=== PATIENT | female | born 1970 | race Caucasian/White ===

== ENCOUNTER 2016-11-16 07:55 | Emergency (ER) | payer MEDICAID ==
[~2016-11-16] VITALS: Ht 175.3 cm; Wt 105.0 kg
[2016-11-16 07:59] VITALS: BP 113/69
[2016-11-16] MEDS ORDERED: METF500T4 PO (08:39)
[2016-11-16] MEDS ORDERED: INSU100V8 SQ (08:39)
== END 2016-11-16 08:51 | disposition home or self-care (01) ==
LOC: ED 08:45
DX: Z76.0 Encounter for issue of repeat prescription (principal); E10.9 Type 1 diabetes mellitus without complications
CPT/HCPCS: 99283

== ENCOUNTER 2017-05-03 10:53 | Inpatient (IN) | payer MEDICAID, OTHER ==
[~2017-05-03] VITALS: Ht 175.3 cm; Wt 98.4 kg
[~2017-05-03 10:53] MED LIST: INSU100V8 SQ; METF500T4 PO
[2017-05-03] MEDS ORDERED: ONDANSETRON 2MG/ML, 2ML IVPush ONE (15:30)
[2017-05-03] MEDS ORDERED: ONDANSETRON ODT 4 MG ONE (15:33)
[2017-05-03 15:43] LABS: BASOPHILS # (AUTO) 0.04 x10^3/uL (0-0.1); BASOPHILS % (AUTO) 1 % (0-1); EOSINOPHILS # (AUTO) 0.17 x10^3/uL (0-0.4); EOSINOPHILS % (AUTO) 2 % (1-7); LYMPHOCYTES # (AUTO) 1.45 x10^3/uL (1-3.4); LYMPHOCYTES % (AUTO) 21 % (22-44); MD NO; MEAN CORPUSCULAR HEMOGLOBIN 31.5 pg (27.0-34.8); MEAN CORPUSCULAR HGB CONC 33.3 g/dL (32.4-35.8); MEAN CORPUSCULAR VOLUME 94.3 fL (80-100); MEAN PLATELET VOLUME 8.9 fL (7.4-10.4); MONOCYTES # (AUTO) 0.41 x10^3/uL (0.2-0.8); MONOCYTES % (AUTO) 6 % (2-9); NEUTROPHILS # (AUTO) 4.81 x10^3/uL (1.8-6.8); NEUTROPHILS % (AUTO) 70 % (42-75); PLATELET COUNT 313 x10^3/uL (130-400); RED BLOOD COUNT 5.23 x10^6/uL (3.82-5.3); RED CELL DISTRIBUTION WIDTH 13.5 % (9.6-15.2)
[2017-05-03 15:44] LABS: RAPID INFLUENZA A Negative (Negative); RAPID INFLUENZA B Negative (Negative)
[2017-05-03 15:53] LABS: ALBUMIN 3.8 g/dL (3.4-5.0); ANION GAP 10 mmol/L (5-15); CALCIUM 8.7 mg/dL (8.5-10.1); CHLORIDE 104 mmol/L (98-107)
[2017-05-03 15:54] LABS: CREATININE 0.78 mg/dL (0.55-1.02)
[2017-05-03] MEDS ORDERED: ALBUTEROL/IPRATROPIUM 2.5MG/0.5MG, 3 ML NPPB ONE (16:00)
[2017-05-03] MEDS ORDERED: ALBUTEROL/IPRATROPIUM 2.5MG/0.5MG, 3 ML NPPB SCH (16:00)
[2017-05-03] MEDS ORDERED: ALBUTEROL/IPRATROPIUM 2.5MG/0.5MG, 3 ML ONE ×2 (16:00→17:08)
[2017-05-03] MEDS ORDERED: ONDANSETRON ODT 4 MG PO ONE (16:00)
[2017-05-03] MEDS ORDERED: ACETAMINOPHEN 325 MG TABLET PO PRN (18:00)
[2017-05-03] MEDS ORDERED: BISACODYL 10 MG SUPP PR PRN (18:00)
[2017-05-03] MEDS ORDERED: POLYETHYLENE GLYCOL 17 GM PACKET PO PRN (18:00)
[2017-05-03] MEDS ORDERED: ONDANSETRON 2MG/ML, 2ML IVPush PRN (18:00)
[2017-05-03 18:40] LABS: HEMOGLOBIN A1C 7.4 % (4.2-6.3)
[2017-05-03 19:00] VITALS: BP 135/80
[2017-05-03] MEDS ORDERED: ALBUTEROL SULFATE 2.5 MG/3 ML NPPB PRN (20:00)
[2017-05-03] MEDS: HEPARIN 5,000 UNITS/ML, 1ML SQ SCH (21:49)
[2017-05-03] MEDS: methylPREDNISolone SOD SUCC 125 MG/2 ML IVPush SCH (21:49)
[2017-05-03] MEDS: SODIUM CHLORIDE FLUSH 10ML SYR IVF SCH (21:55)
[2017-05-03] MEDS: INSULIN GLARGINE 100 UNITS/ML, PEN SQ-INSULIN SCH (21:55)
[2017-05-03 22:01] VITALS: BP 135/80
[2017-05-04 02:00] VITALS: BP 114/71
[2017-05-04] MEDS: HEPARIN 5,000 UNITS/ML, 1ML SQ SCH ×3 (04:45→21:00)
[2017-05-04] MEDS: methylPREDNISolone SOD SUCC 125 MG/2 ML IVPush SCH ×3 (04:45→21:00)
[2017-05-04 05:21] LABS: MEAN CORPUSCULAR HEMOGLOBIN 32.2 pg (27.0-34.8); MEAN CORPUSCULAR HGB CONC 34.3 g/dL (32.4-35.8); MEAN CORPUSCULAR VOLUME 93.8 fL (80-100); PLATELET COUNT 323 x10^3/uL (130-400); RED BLOOD COUNT 4.73 x10^6/uL (3.82-5.3); RED CELL DISTRIBUTION WIDTH 13.3 % (9.6-15.2)
[2017-05-04 05:31] LABS: CHLORIDE 103 mmol/L (98-107)
[2017-05-04 05:39] LABS: ALANINE AMINOTRANSFERASE 25 U/L (12-78); ALBUMIN 3.4 g/dL (3.4-5.0); ALKALINE PHOSPHATASE 115 U/L (45-117); ANION GAP 11 mmol/L (5-15); BILIRUBIN,TOTAL 0.3 mg/dL (0.2-1.0); CALCIUM 8.3 mg/dL (8.5-10.1); CREATININE 0.74 mg/dL (0.55-1.02)
[2017-05-04 06:38] LABS: MD YES
[2017-05-04 06:59] LABS: <RBC MORPHOLOGY> NORMAL; LYMPH#(MANUAL) 0.19 x10^3/uL (1-3.4); LYMPHS% (MANUAL) 2 % (22-44); SEG#(MANUAL) 9.11 x10^3/uL (1.8-6.8); SEGS% (MANUAL) 98 % (42-75)
[2017-05-04 07:00] LABS: <PLATELET ESTIMATE> ADEQUATE; <PLT MORPHOLOGY> NORMAL PLT MORPH
[2017-05-04 07:20] VITALS: BP 121/69
[2017-05-04] MEDS: GUAIFENESIN/DM 200-20MG, 10ML UDC PO PRN ×2 (08:43→21:22)
[2017-05-04] MEDS: SODIUM CHLORIDE FLUSH 10ML SYR IVF SCH ×2 (08:43→21:00)
[2017-05-04] MEDS: SENNA/DOCUSATE TABLET PO SCH (08:44)
[2017-05-04] MEDS: DOXYCYCLINE 100MG TABLET PO SCH ×2 (09:29→21:00)
[2017-05-04 12:19] VITALS: BP 116/70
[2017-05-04] MEDS: INSULIN LISPRO 100 UNITS/ML, PEN SQ-INSULIN SCH ×2 (17:20→21:17)
[2017-05-04 19:37] VITALS: BP 131/76
[2017-05-04] MEDS: INSULIN GLARGINE 100 UNITS/ML, PEN SQ-INSULIN SCH (21:16)
[2017-05-05 04:03] VITALS: BP 131/85
[2017-05-05] MEDS: HEPARIN 5,000 UNITS/ML, 1ML SQ SCH ×2 (04:37→13:11)
[2017-05-05] MEDS: methylPREDNISolone SOD SUCC 125 MG/2 ML IVPush SCH ×2 (04:37→13:11)
[2017-05-05 07:27] VITALS: BP 130/77
[2017-05-05] MEDS: INSULIN LISPRO 100 UNITS/ML, PEN SQ-INSULIN SCH ×2 (08:32→11:56)
[2017-05-05] MEDS: DOXYCYCLINE 100MG TABLET PO SCH (08:32)
[2017-05-05] MEDS: SODIUM CHLORIDE FLUSH 10ML SYR IVF SCH (08:33)
[2017-05-05] MEDS: SENNA/DOCUSATE TABLET PO SCH (08:33)
[2017-05-05] MEDS ORDERED: DOXY100T PO (12:27)
[2017-05-05] MEDS ORDERED: ACET325T14 PO (12:27)
[2017-05-05] MEDS ORDERED: PRED5TAB PO (12:27)
[2017-05-05] MEDS ORDERED: INSU100I11 SQ-INSULIN (12:27)
[2017-05-05] MEDS ORDERED: POLY17PO5 PO (12:27)
[2017-05-05] MEDS ORDERED: ALBU2.5V NPPB (12:27)
[2017-05-05] MEDS ORDERED: FLUTICASONE/VILANTEROL 200-25MCG/INH INH SCH (12:30)
[2017-05-05] MEDS ORDERED: FLUT1BLS INH (12:33)
[2017-05-05 13:35] VITALS: BP 145/82
[2017-05-05] MEDS ORDERED: FLU VACC QS2017-18 (36MOS+) UP/PF 0.5 ML IM-VACC ONE (16:00)
[2017-05-05] MEDS ORDERED: PNEUMOCOCCAL 23 VACCINE IM-VACC ONE (16:00)
== END 2017-05-05 16:46 | disposition home or self-care (01) | DRG 202 ==
LOC: ED 17:36 → EDIP 17:38 → 4EST 18:27 → DCLOUNGE 05-05 16:26
PROVIDERS: ADMIT Hospitalist; ATTEND Hospitalist
DX: J20.8 Acute bronchitis due to other specified organisms (principal); J45.901 Unspecified asthma with (acute) exacerbation; J43.9 Emphysema, unspecified; B34.9 Viral infection, unspecified; E11.9 Type 2 diabetes mellitus without complications; Z79.4 Long term (current) use of insulin; Z23 Encounter for immunization
CPT/HCPCS: 36415; 71046; 80048; 80053; 82040; 82962; 83036; 85025; 87400; 90686; 90732; 93005; 93306; 94640; 99285; J1644; J7620; Q0162; J1815; J2930